=== PATIENT | male | born 1975 | race African-American/Black ===

== ENCOUNTER 2018-09-24 18:23 | Emergency (ER) | payer OTHER ==
--- NOTE | 2018-09-24 18:50 | ED ---
Neurological HPI - HPI Summary HPI Summary: This patient is a 43 year old male w recently diagnosed HIV not on ARVs BIBA to ED via EMS with a chief complaint of seizure-like activity at 1800 today. Patient does not have a history of seizures. Patient was at [facility] when the symptoms began. Patient does not remember what happened, endorses LOC. Patient report a hx of IVDU, last used heroin on August 18. Patient rarely drinks alcohol. Patient is on suboxone daily and took 16mg today. Patient is unsure of his last tetanus, but believes it is in the last 10 years. Patient denies fevers, headaches. - History of Current Complaint Chief Complaint: EDSeizure Stated Complaint: SEIZURE PER EMS Time Seen by Provider: 09/24/18 18:28 Hx Obtained From: Patient Onset/Duration: Sudden Onset, Started hours ago - At 1800, Resolved Seizure Severity: Moderate Number of Seizures: 1 Pain Intensity: 0 Pain Scale Used: 0-10 Numeric Character: Other: - Positive: diaphoresis. Negative: fever, headache Aggravating: Nothing Alleviating: Nothing Associated Signs and Symptoms: Negative: Headache, Fever - Allergy/Home Medications Allergies/Adverse Reactions: Allergies Allergy/AdvReac Type Severity Reaction Status Date / Time No Known Allergies Allergy Verified 09/24/18 20:44 Home Medications: Home Medications Buprenorp/Nalox 8-2 MG FILM [Suboxone 8 mg-2 mg Sl Film] 1 film SL DAILY [History Confirmed 09/24/18] PMH/Surg Hx/FS Hx/Imm Hx Endocrine/Hematology History: Reports: Other Endocrine/Hematological Disorders - HIV Sensory History: Denies: Hx Deafness EENT History: Denies: Hx Deafness Neurological History: Denies: Hx Seizures Psychiatric History: Reports: Hx Substance Abuse - Surgical History Surgery Procedure, Year, and Place: Left hand cellulitis removal Infectious Disease History: No Infectious Disease History: Denies: Traveled Outside the [place] in Last 30 Days - Family History Known Family History: Positive: Hypertension, Diabetes, Other - Negative: seizures - Social History Alcohol Use: Rare Hx Substance Use: Yes Substance Use Type: Reports: Heroin Hx Tobacco Use: No Smoking Status (MU): Never Smoked Tobacco Review of Systems Positive: Skin Diaphoresis. Negative: Fever Eyes: Other - Left eye swelling Skin: Other - Laceration to left eyebrow Negative: Headache All Other Systems Reviewed And Are Negative: Yes Physical Exam - Summary Physical Exam Summary: Constitutional: Well-developed, Well-nourished, Alert. (-) Distressed Skin: Warm, Dry HENT: 1 cm laceration to the left eyebrow Eyes: Conjunctiva normal Neck: Musculoskeletal ROM normal neck. (-) JVD, (-) Stridor, (-) Nuchal rigidity Cardio: Rhythm regular, rate normal, Heart sounds normal; Intact distal pulses; Radial pulses are 2+ and symmetric. (-) Murmur Pulmonary/Chest wall: Effort normal. (-) Respiratory distress, (-) Wheezes, (-) Rales Abd: Soft, (-) tenderness, (-) Distension, (-) Guarding, (-) Rebound Musculoskeletal: (-) Edema Lymph: (-) Cervical adenopathy Neuro: Alert, Oriented x3 Psych: Mood and affect Normal GCS: 15 Triage Information Reviewed: Yes Vital Signs On Initial Exam: Initial Vitals Temp Pulse Resp BP Pulse Ox 97.6 F 88 20 126/70 95 09/24/18 18:24 09/24/18 18:24 09/24/18 18:24 09/24/18 18:24 09/24/18 18:24 Vital Signs Reviewed: Yes Procedures - Procedure Summary Procedure Summary: US IV Ultrasound Guided Peripheral IV Procedure Note Indication: Unable to obtain adequate IV access Skin Prep:Chlorhexidine Sterile Prep (allowed to dry for thirty seconds) Sterility: Gloves Insertion: Appropriate time out was taken. Ultrasound guidance was utilized for vein selection, to document selected vessel patency and real time ultrasound visualization of vascular needle entry into venous lumen. Insertion Site: L Forearm Type of catheter: 20 gauge catheter Blood return:yes Saline lock: yes Post Procedure: Estimated blood loss: minimal - Laceration/Wound Repair 1 Location: head - Left eyebrow Description: Linear Anesthesia: 1.0%, Lido Length, Depth and Shape: 1cm Betadine Prep?: No - Irrigated with saline Laceration/Wound Explored: clean Closure: Single Layer Suture Type: Other - Fast-gut sutures Number of Sutures: 2 Layer Closure?: Yes Sterile Dressing Applied?: Yes - Ultrasound No standard instances Ultrasound: normal - Bedside US to place IV, successful w/o complication Diagnostics - Vital Signs Vital Signs Temp Pulse Resp BP Pulse Ox 09/24/18 18:24 97.6 F 88 20 126/70 95 - Laboratory Result Diagrams: 09/24/18 18:57 09/24/18 18:57 Lab Statement: Any lab studies that have been ordered have been reviewed, and results considered in the medical decision making process. - CT Brain CT Interpretation Completed By: Radiologist Summary of CT Findings: Small area of subarachnoid hemorrhage overlying the temporal lobe with extensive white matter changes in the right temporal, parietal, and deep white matter tracks with etiologies including acute infarct, infectious encephalopathy including herpes, and neoplasm. Recommend followup pre -and post contrast brain MRI. Dr. Kendall has reviewed this radiology report. - EKG 1935 Cardiac Rate: NL - 80 BPM EKG Rhythm: Sinus Rhythm Summary of EKG Findings: NSR at 80 BPM, T wave inversion in v1. Re-Evaluation - Re-Evaluation First Eval Re-Evaluation Time: 20:04 Comment: Given patient CT brain findings of trace SAH and frontal/temporal/ parietal lesions/mass, I will give him Keppra. Also d/w him regarding LP, and likely transfer. Patient agrees to LP if needed and transfer. Second Eval Re-Evaluation Time: 20:34 Comment: Discussed Dr. Rico's recommendations with patient will hold on LP Third Eval Re-Evaluation Time: 21:45 Comment: Discussed transfer with patient and plan to hold on LP. Patient understands and agrees with this plan. Patient will be transferred to [facility], accepting physician Dr. Landa, neurosurgeon. Course/Dx - Course Course Of Treatment: 43-year-old male with a history of HIV, unknown CD4 count, presents with seizure. -No prior head trauma, reports no infectious symptoms but patient's immunocompromised so consider opportunistic infections such as ecephalitis and neoplasm. Check a CBC and white count, patient has history of substance use but denies recent substances including no recent alcohol. Check head CT. Will repair eyebrow laceration. - Diagnoses Provider Diagnoses: Laceration of left eyebrow, Seizure, Subarachnoid hemorrhage, HIV (human immunodeficiency virus infection) - Physician Notifications Discussed Care Of Patient With: Jeevan Rico Time Discussed With Above Provider: 20:13 Instructed by Provider To: Other - Discussed pt case with Dr. Rico, neuro, who recommends a neurosurgery consult and that we may need an MRI before the LP , but he will call me back. At 2025, consulted with Dr. Vaz's (neurosurgeon ) PA who stated he is not operating right now, so I will need to transfer. At 2025, consulted again with Dr. Rico, who recommended an MRI and to discuss with neurosurgery regarding the LP. At 2050 discussed patient case with Dr. Miki Oliveira, neurosurgeon at [facility], who stated they do not have the appropriate neurologist to take the patient. At 2135 discussed patient case with Dr. Pope, neurosurgeon, at [facility], who accepted the patient for transfer to [facility]. She recommended aciclovir and that we hold on the LP. - Critical Care Time Critical Care Time: 30-74 min - 30 minutes Discharge - Sign-Out/Discharge Documenting (check all that apply): Patient Departure - Transfer Patient Received Moderate/Deep Sedation with Procedure: No - Discharge Plan Condition: Stable Disposition: TRANS HIGHER LVL OF CARE FAC Referrals: No Primary Care Phys,NOPCP [Primary Care Provider] - - Billing Disposition and Condition Condition: STABLE Disposition: Trans Higher Lvl of Care Fac - Attestation Statements Document Initiated by Scribe: Yes Documenting Scribe: Jad Cruz Provider For Whom [employer] is Documenting (Include Credential): Kenton Kendall MD Scribe Attestation: I, Jad Cruz, scribed for Kenton Kendall MD on 09/24/18 at 2150. Scribe Documentation Reviewed: Yes Provider Attestation: The documentation as recorded by the Jad kyle accurately reflects the service I personally performed and the decisions made by me, Kenton Kendall MD Status of Scribe Document: Viewed
[2018-09-24 19:04] LABS: ABS Eosinophils 0.3 10^3/ul (0-0.6); ABS Lymphocytes 2.2 10^3/ul (1.0-4.8); ABS Monocytes 0.5 10^3/ul (0-0.8); ABS Neutrophils 3.2 10^3/ul (1.5-7.7); Eosinophil % 4.1 %; Hematocrit 41 % (42-52); Hemoglobin 13.7 g/dL (14.0-18.0); Mean Corpuscular HGB Conc 34 g/dL (31-36); Mean Corpuscular Hemoglobin 30 pg (27-31); Mean Corpuscular Volume 89 fL (80-94); Mean Platelet Volume 6.8 fL (7.4-10.4); Nucleated Red Blood Cells % 0.1; Platelet Count 357 10^3/uL (150-450); Red Blood Count 4.56 10^6 /uL (4.18-5.48); Red Cell Distribution Width 14 % (10-15); White Blood Count 6.1 10^3/uL (3.5-10.8)
[2018-09-24 19:13] LABS: Albumin 4.2 g/dL (3.2-5.2); Anion Gap 17 mmol/L (2-11); CO2 Carbon Dioxide 17 mmol/L (22-32); Chloride 103 mmol/L (101-111); Sodium 137 mmol/L (135-145)
[2018-09-24 19:19] LABS: ALT 47 U/L (7-52); AST 43 U/L (13-39); Albumin/Globulin Ratio 0.8 (1-3); Alkaline Phosphatase 90 U/L (34-104); BUN/Creatinine Ratio 23.1 (8-20); Blood Urea Nitrogen 24 mg/dL (6-24); EGFR African American 93.4 (>60); EGFR Non-African American 77.2 (>60); Glucose 96 mg/dL (70-100); Total Protein 9.2 g/dL (6.4-8.9)
[2018-09-24 19:33] LABS: Alcohol < 10 mg/dL (<10)
[2018-09-24] MEDS ORDERED: Lidocaine 1% INJ* 10 MG/ML 30 ML SDV INJ ONE (19:59)
[2018-09-24] MEDS ORDERED: levETIRAcetam 1000MG IVPREMIX* 1,000 MG/100 ML BAG IVPB ONE (20:04)
--- OUTSIDE RECORDS SUMMARY | 2018-09-24 20:53 | XMS REPORT | Continuity of Care Document ---
:1975 External Reference #:[id number] Author Name Valeria Berry Care Team Providers Name Role Phone Abad Orta M.D. Care Team Information Administrative Judge Unavailable Payers Date Identification Numbers Payment Provider Subscriber Policy Number: [id number] Rodney Anguiano Group Number: [id number] [address] Group Name: Medicaid [place] [address] PayID: [id number] Social History Type Date Description Comments Sex Unknown Tobacco Use Start: Unknown End: Patient is a former smoker 1 ppd x 28 yrs, quit Unknown August 2018 Smoking Status Reviewed: 09/22/18 Patient is a former smoker 1 ppd x 28 yrs , quit August 2018 Allergies, Adverse Reactions, Alerts Description No Known Drug Allergies Medications Active Medications SIG Qnty Indications Ordering Provider Date Suboxone 2 qd Unknown 8-2mg Film Amoxicillin 1 po tid Unknown 500mg Capsules Vital Signs Date Vital Result Comment 09/22/2018 2:32pm Height 75 inches 6'3" Weight 229.12 lb Heart Rate 84 /min BP Systolic Sitting 140 mmHg BP Diastolic Sitting 90 mmHg Respiratory Rate 14 /min Body Temperature 98.1 F BMI (Body Mass Index) 28.6 kg/m2 Plan of Treatment Future Appointment(s):10/12/2018 10:10 am - Abad Orta M.D. at [facility]/08/2019 - Abad Orta M.D.Z21 Asymptomatic human immunodeficiency virus infection statusFollow up:2-3 [id number] Chronic viral hepatitis CR76.12 Nonspec reaction to gamma intrfrn respns w/o actv tubrclosis
[2018-09-24 21:18] LABS: Urine Benzodiazepine Screen None Detected (None Detect); Urine Opiates Screen None Detected (None Detect)
[2018-09-24] MEDS ORDERED: NS 0.9% IVPB ONE ×2 (22:00→23:00)
[2018-09-24] MEDS ORDERED: ACYCLOVIR IVPB ONE ×2 (22:00→23:00)
[2018-09-24 23:52] VITALS: BP 114/67
[2018-09-27 13:13] LABS: Herpes Simplex Virus I IgG AB Positive (Negative); Herpes Simplex Virus II IgG AB Negative (Negative)
[2018-09-27 23:18] LABS: Herpes Simplex IgM Screen Reactive (Negative)
--- NOTE | 2018-09-28 06:07 | PN ---
Progress Note - Progress Note Date of Service: 09/28/18 Note: results for hsv available. patient was transferred to [facility] so will have results faxed.
[2018-09-29 08:30] LABS: Herpes Simplex IgM IFA Negative (Negative)
== END 2018-09-24 23:40 | disposition short-term general hospital (02) ==
LOC: ED 18:23
DX: R56.9 Unspecified convulsions (principal); S01.112A Laceration without foreign body of left eyelid and periocular area, initial encounter; X58.XXXA Exposure to other specified factors, initial encounter; Y92.89 Other specified places as the place of occurrence of the external cause; I60.9 Nontraumatic subarachnoid hemorrhage, unspecified; R61 Generalized hyperhidrosis; B20 Human immunodeficiency virus [HIV] disease
CPT/HCPCS: 12011; 36415; 70450; 80053; 80307; 80320; 85025; 85610; 86694; 86695; 86696; 93005; 96365; 99285; G0480; J0133; J1953